=== PATIENT | male | born 1985 | race Two or more races ===

== ENCOUNTER 2025-04-10 12:10 | Emergency (ER) | payer OTHER ==
[~2025-04-10] VITALS: Ht 167.6 cm; Wt 81.6 kg
[2025-04-10] MEDS ORDERED: COZAAR25 MG PO (13:02)
[2025-04-10] MEDS ORDERED: ROSUVASTATIN CA20 MG PO (13:03)
[2025-04-10] MEDS ORDERED: AMLODIPINE-OLM1 EAC1 PO (13:03)
[2025-04-10] MEDS ORDERED: BUTALB/ACETAMINOPHEN/CAFFEINE 1 TAB TABLET PO ONE (13:45)
[2025-04-10] MEDS ORDERED: ONDANSETRON 4 MG TAB.RAPDIS PO ONE (13:45)
[2025-04-10 14:00] LABS: BASO % 0.4 % (0.1-1.2); EOS # 0.03 (0.04-0.54); EOS % 0.2 % (0.7-7.0); LYMPH # 1.30 (1.18-3.74); LYMPH % 9.4 % (19.3-53.1); MEAN PLATELET VOLUME 9.70 fl (9.4-12.4); MONO # 0.48 (0.24-0.82); MONO % 3.5 % (4.7-12.5); NEUT # 11.89 (1.56-6.13); NEUT % 86.0 % (34.0-71.1); RED CELL DISTRIBUTION WIDTH 12.6 % (11.6-14.4)
[2025-04-10 14:18] LABS: COVID-19 AG NEGATIVE (NEGATIVE)
[2025-04-10] MEDS ORDERED: PEPCID AC20 MG PO (14:47)
[2025-04-10] MEDS ORDERED: ZOFRAN8 MG PO (14:47)
[2025-04-10] MEDS ORDERED: AZITHROMYCIN500 MG PO (14:47)
== END 2025-04-10 14:59 | disposition home or self-care (01) ==
LOC: ER 12:10
PROVIDERS: General Practice
DX: R51.9 Headache, unspecified (principal); R11.0 Nausea; Z88.6 Allergy status to analgesic agent; Z91.041 Radiographic dye allergy status; Z20.822 Contact with and (suspected) exposure to COVID-19; Z88.0 Allergy status to penicillin